=== PATIENT | female | born 1960 | race American Indian/Alaskan Native ===

== ENCOUNTER 2022-01-17 17:45 | Emergency (ER) | payer SELFPAY ==
[2022-01-17] MEDS ORDERED: ASPIRIN 325 MG TAB PO ONE (17:49)
--- NOTE | 2022-01-17 18:30 | XRay Report ---
CHEST 2 VIEWS INDICATION / CLINICAL INFORMATION: SOB. COMPARISON: None available. FINDINGS: SUPPORT DEVICES: None. HEART / MEDIASTINUM: No significant abnormality. LUNGS / PLEURA: Mild elevation left hemidiaphragm left lower lung atelectasis and small effusion No p neumothorax. Signer Name: Wes Jones MD Signed: 01/17/2022 6:26 PM Workstation Name: [id number]
[2022-01-17 19:17] LABS: Alanine Aminotransferase 13 units/L (7-56); Albumin 4.3 g/dL (3.9-5); BUN/Creatinine Ratio 18; Blood Urea Nitrogen 14 mg/dL (7-17); Calcium 10.1 mg/dL (8.4-10.2); Hemolysis Index 24
[2022-01-17 19:39] LABS: Basophils # (Auto) 0.2 K/mm3 (0.0-0.1); Basophils % (Auto) 1.6 % (0.0-1.8); Eosinophils # (Auto) 0.2 K/mm3 (0.0-0.4); Eosinophils % (Auto) 1.7 % (0.0-4.3); Hematocrit 43.2 % (30.3-42.9); Hemoglobin 14.4 gm/dl (10.1-14.3); Lymphocytes # (Auto) 2.2 K/mm3 (1.2-5.4); Mean Corpuscular HGB Conc 33 % (30-34); Mean Corpuscular Volume 85 fl (79-97); Monocytes # (Auto) 1.1 K/mm3 (0.0-0.8); Monocytes % (Auto) 9.8 % (0.0-7.3); Platelet Count 440 K/mm3 (140-440); Red Blood Count 5.07 M/mm3 (3.65-5.03); Red Cell Distribution Width 13.7 % (13.2-15.2)
[2022-01-18] MEDS ORDERED: ALUM-MAG HYDROXIDE-SIMETHICONE 200-200-20MG/5ML ORAL LIQD 30 ML PO ONE (02:11)
[2022-01-18] MEDS ORDERED: LIDOCAINE VISCOUS 2% 15 ML ORAL LIQD PO ONE (02:12)
[2022-01-18] MEDS ORDERED: MORPHINE 4 MG/1 ML INJ IV ONE (02:25)
--- NOTE | 2022-01-18 04:18 | Emergency Department Report ---
ED Shortness of Breath HPI - General Chief Complaint: Dyspnea/Respdistress Stated Complaint: CHEST PAIN/SOB Time Seen by Provider: 01/18/22 01:09 Source: patient Mode of arrival: Ambulatory Limitations: No Limitations - History of Present Illness Initial Comments: Patient is a 61-year-old female presenting to ED with complaint of shortness of breath for the past several days. She reports history of lung cancer with partial lung resection years ago. She also complains of pain in both of her ears for the past few days after washing her hair. She denies any fever or chills. - Related Data Previous Rx's Medication Instructions Recorded Last Taken Type Ciprofloxacin HCl/Dexameth 2 drop AU BID 7 Days #7.5 ml 01/18/22 Unknown Rx [Ciprodex Otic Suspension] Allergies Allergy/AdvReac Type Severity Reaction Status Date / Time No Known Allergies Allergy Verified 01/17/22 17:49 ED Review of Systems ROS: Stated complaint: CHEST PAIN/SOB Other details as noted in HPI Constitutional: denies: chills, fever ENT: ear pain Respiratory: shortness of breath. denies: cough, wheezing Gastrointestinal: denies: abdominal pain, nausea, diarrhea Genitourinary: denies: urgency, dysuria, discharge Musculoskeletal: denies: back pain, joint swelling, arthralgia Skin: denies: rash, lesions Neurological: denies: headache, weakness, paresthesias Psychiatric: denies: anxiety, depression ED Past Medical Hx - Medications Home Medications: Home Medications Medication Instructions Recorded Confirmed Last Taken Type Ciprofloxacin HCl/Dexameth 2 drop AU BID 7 Days #7.5 ml 01/18/22 Unknown Rx [Ciprodex Otic Suspension] ED Physical Exam - General Limitations: No Limitations General appearance: alert, in no apparent distress - Head Head exam: Present: atraumatic, normocephalic - ENT ENT exam: Present: other (Edematous canals bilaterally) - Neck Neck exam: Present: normal inspection - Respiratory Respiratory exam: Present: normal lung sounds bilaterally. Absent: respiratory distress - Cardiovascular Cardiovascular Exam: Present: regular rate, normal rhythm, normal heart sounds - GI/Abdominal GI/Abdominal exam: Present: soft. Absent: distended, tenderness - Rectal Rectal exam: Present: deferred - Neurological Exam Neurological exam: Present: alert, oriented X3 - Psychiatric Psychiatric exam: Present: normal affect, normal mood - Skin Skin exam: Present: warm, dry, intact, normal color ED Course Vital Signs 01/17/22 01/18/22 17:51 01:00 Temperature 98.5 F 97.6 F Pulse Rate 115 H 111 H Respiratory 16 22 Rate Blood Pressure 115/81 117/71 [Left] O2 Sat by Pulse 95 93 Oximetry ED Medical Decision Making - Lab Data Result diagrams: 01/17/22 18:39 01/17/22 18:39 - Medical Decision Making CBC and CMP grossly unremarkable. D-dimer within normal limits. 3 sets of troponins are undetectable. Chest x-ray shows mild elevation of the left hemidi aphragm with left lower lung atelectasis and small effusion. No pneumothorax. Ear exam reveals boggy/edematous canals bilaterally. Likely otitis externa. Will treat with Ciprodex otic drops. I discussed results with the patient. She is stable for discharge home with PCP follow-up. Critical care attestation.: If time is entered above; I have spent that time in minutes in the direct care of this critically ill patient, excluding procedure time. ED Disposition Clinical Impression: Dyspnea, Otitis externa Disposition: 01 HOME / SELF CARE / HOMELESS Is pt being admited?: No Does the pt Need Aspirin: No Condition: Stable Instructions: Otitis Externa, [id number], Shortness of Breath, Adult Referrals: ERICA BUCIO MD [Primary Care Provider] - 3-5 Days
[2022-01-18 04:38] VITALS: BP 102/76
--- NOTE | 2022-01-18 11:24 | Electrocardiograph Report ---
[facility] Test Date: 2022-01-17 Test Time: 17:55:29 Pat Name: OSCAR SIMON Department: Room: Gender: F Frit Burner: MARIXA : 1960 Requested By: DAVID KEARNEY Order Number: [id number] Reading MD: Ajit Pisano Measurements Intervals Shannon Rate: 100 P: 36 MD: 141 QRS: 83 QRSD: 86 T: 30 QT: 346 QTc: 447 Interpretive Statements Sinus tachycardia anteroseptal infarct, age undetermined No previous ECG available for comparison Electronically Signed On 01-18-2022 11:23:45 EDT by Ajit Pisano
== END 2022-01-18 05:00 | disposition home or self-care (01) ==
LOC: ED 17:45
DX: R06.00 Dyspnea, unspecified (principal); H60.90 Unspecified otitis externa, unspecified ear
CPT/HCPCS: 36415; 71046; 80053; 84484; 85025; 85379; 93005; 96374; 99284; J2270; 96372